=== PATIENT | male | born 1975 | race Caucasian/White ===

== ENCOUNTER → 2019-04-29 | Outpatient (CLI) | payer BC ==
[~2019-04-29] MED LIST: CETI10 PO; CITA20 PO; TRAZ50 PO
== END | disposition home or self-care (01) ==
LOC: PLD 07:46 → LAB SHORT 07:46
DX: B07.9 Viral wart, unspecified (principal)
CPT/HCPCS: 88305

== ENCOUNTER 2019-07-20 16:30 | Emergency (ER) | payer OTHER, BC ==
[~2019-07-20] VITALS: Ht 172.7 cm; Wt 81.7 kg
[2019-07-20] MEDS ORDERED: Norco 7.5-3251 EACH PO (17:55)
[2019-07-20] MEDS ORDERED: IBUP400 PO (17:55)
== END 2019-07-20 18:10 | disposition home or self-care (01) ==
LOC: ER 16:30
DX: S46.212A Strain of muscle, fascia and tendon of other parts of biceps, left arm, initial encounter (principal); Z79.899 Other long term (current) drug therapy; W01.0XXA Fall on same level from slipping, tripping and stumbling without subsequent striking against object, initial encounter
CPT/HCPCS: 73060; 76882; 99284-25; A9270-GY

== ENCOUNTER 2019-10-28 12:53 | Emergency (ER) | payer BC ==
[~2019-10-28 12:53] MED LIST changes: +IBUP400 PO; +Norco 7.5-3251 EACH PO
[2019-10-28] MEDS ORDERED: Lamictal150 MG PO (13:05)
[2019-10-28] MEDS ORDERED: CLON.2 PO (13:05)
[2019-10-28] MEDS ORDERED: DESVENLAFAXINE100 M3 PO (13:06)
[2019-10-28] MEDS ORDERED: SYNTHROID50 MC1 PO (13:06)
[2019-10-28] MEDS ORDERED: ALPRAZOLAM0.5 M1 PO (13:06)
[2019-10-28 13:21] LABS: BASOPHILS ABSOLUTE AUTO 0.03 K/mm3 (0.00-0.23); BASOPHILS PERCENT AUTO 0 % (0-2); EOSINOPHILS ABSOLUTE AUTO 0.15 K/mm3 (0.00-0.68); EOSINOPHILS PERCENT AUTO 2 % (0-6); Hemoglobin 16.4 g/dL (13.5-17.5); IMMATURE GRAN ABSOLUTE AUTO 0.02 K/mm3 (0.00-0.10); IMMATURE GRAN PERCENT AUTO 0 % (0-1); LYMPHOCYTES ABSOLUTE AUTO 2.14 K/mm3 (0.84-5.20); LYMPHOCYTES PERCENT AUTO 25 % (21-46); MONOCYTES PERCENT AUTO 12 % (4-13); Mean Corpuscular HGB 33.1 pg (26.0-34.0); Mean Corpuscular HGB Conc 36.4 g/dL (31.5-36.5); Mean Corpuscular Volume 91 fL (80-100); Mean Platelet Volume 9.7 fL (9.1-12.4); NEUTROPHILS ABSOLUTE AUTO 5.35 K/mm3 (1.96-9.15); NEUTROPHILS PERCENT AUTO 62 % (41-73); Platelet Count 264 K/mm3 (150-400); RDW Coefficient Variation 12.5 % (11.7-14.2); RDW Standard Deviation 40.7 fL (35.1-46.3); Red Blood Cell Count 4.95 M/mm3 (4.30-5.90); White Blood Cell Count 8.69 K/mm3 (4.00-11.30)
[2019-10-28 13:34] LABS: Alanine Aminotransfer (ALT/SGP 37 U/L (12-78); Albumin, Blood 4.6 g/dL (3.4-5.0); Albumin/Globulin Ratio 1.4 (0.8-1.8); Alk Phos 91 U/L (50-136); Anion Gap 9 mmol/L (6-16); Aspartate Aminotrans (AST/SGOT 33 U/L (12-37); Bilirubin, Total 0.9 mg/dL (0.1-1.0); Blood Urea Nitrogen 9 mg/dL (8-24); Bun/Creatinine Ratio 8.2 (12.0-20.0); CO2, Blood 24 mmol/L (21-32); Calcium, Blood 9.4 mg/dL (8.5-10.1); Chloride, Blood 104 mmol/L (98-108); Globulin, Blood 3.4 g/dL (2.2-4.0); Glomerular Filtration Rate >60 (60-); Glucose, Blood 132 mg/dL (70-99); Potassium, Blood 3.6 mmol/L (3.5-5.5); Sodium, Blood 137 mmol/L (136-145)
[2019-10-28 14:04] LABS: Source, Urine Clean Catch
[2019-10-28 14:15] LABS: Bilirubin, Urine Neg (Neg); Blood, Urine Neg (Neg); Glucose Qualitative, Urine Neg (Neg); Ketones, Urine Neg (Neg); Leukocyte Esterase, Urine Neg (Neg); Nitrite, Urine Neg (Neg); Protein, Urine Neg (Neg); Specific Gravity, Urine 1.005 (1.003-1.022); Urobilinogen, Urine NORM (Normal)
[2019-10-28 14:20] LABS: Appearance, Urine Clear (Clear); Color, Urine Yellow (P-Yellow); Urine Culture Indicated No (No)
[2019-10-28] MEDS ORDERED: HYDR1TAB94 PO (14:35)
[2019-10-28] MEDS ORDERED: Avidoxy100 MG PO (14:35)
[2019-10-29] MEDS ORDERED: ONDA4ODT SL (13:00)
[2019-10-29] MEDS ORDERED: BELPTAB PO (13:00)
== END 2019-10-28 15:20 | disposition home or self-care (01) ==
PROVIDERS: Physician Assistant
DX: R10.30 Lower abdominal pain, unspecified (principal); Z79.899 Other long term (current) drug therapy

== ENCOUNTER 2019-10-29 09:56 | Emergency (ER) | payer BC ==
[~2019-10-29] VITALS: Ht 172.7 cm; Wt 86.2 kg
[~2019-10-29 09:56] MED LIST changes: +ALPRAZOLAM0.5 M1 PO; +Avidoxy100 MG PO; +CLON.2 PO; +DESVENLAFAXINE100 M3 PO; +HYDR1TAB94 PO; +Lamictal150 MG PO; +SYNTHROID50 MC1 PO
[2019-10-29 12:19] LABS: BASOPHILS ABSOLUTE AUTO 0.02 K/mm3 (0.00-0.23); BASOPHILS PERCENT AUTO 0 % (0-2); EOSINOPHILS ABSOLUTE AUTO 0.14 K/mm3 (0.00-0.68); EOSINOPHILS PERCENT AUTO 2 % (0-6); Hematocrit 42.4 % (37.0-53.0); Hemoglobin 15.1 g/dL (13.5-17.5); IMMATURE GRAN ABSOLUTE AUTO 0.01 K/mm3 (0.00-0.10); IMMATURE GRAN PERCENT AUTO 0 % (0-1); LYMPHOCYTES ABSOLUTE AUTO 1.31 K/mm3 (0.84-5.20); LYMPHOCYTES PERCENT AUTO 22 % (21-46); MONOCYTES ABSOLUTE AUTO 0.65 K/mm3 (0.16-1.47); MONOCYTES PERCENT AUTO 11 % (4-13); Mean Corpuscular HGB Conc 35.6 g/dL (31.5-36.5); Mean Corpuscular Volume 93 fL (80-100); Mean Platelet Volume 9.6 fL (9.1-12.4); NEUTROPHILS ABSOLUTE AUTO 3.89 K/mm3 (1.96-9.15); NEUTROPHILS PERCENT AUTO 65 % (41-73); Platelet Count 197 K/mm3 (150-400); RDW Coefficient Variation 12.2 % (11.7-14.2); RDW Standard Deviation 41.3 fL (35.1-46.3); Red Blood Cell Count 4.58 M/mm3 (4.30-5.90); White Blood Cell Count 6.02 K/mm3 (4.00-11.30)
[2019-10-29 12:27] LABS: Source, Urine Voided
[2019-10-29 12:35] LABS: PSA, Free 0.217 ng/mL
[2019-10-29 12:41] LABS: Bilirubin, Urine Neg (Neg); Blood, Urine Neg (Neg); Glucose Qualitative, Urine Neg (Neg); Ketones, Urine Neg (Neg); Leukocyte Esterase, Urine 1+ (Neg); Nitrite, Urine Neg (Neg); Protein, Urine Neg (Neg); Specific Gravity, Urine 1.005 (1.003-1.022); Urobilinogen, Urine NORM (Normal); pH, Urine 6.5 (5.0-8.0)
[2019-10-29] MEDS ORDERED: BELPTAB PO (13:00)
[2019-10-29] MEDS ORDERED: ONDA4ODT SL (13:00)
[2019-10-29 13:04] LABS: Appearance, Urine Clear (Clear); Color, Urine Yellow (P-Yellow)
[2019-10-29 13:05] LABS: Bacteria Few /hpf; Red Blood Cells, Urine 0-2 /hpf (0-2); Squamous Epithelial Cells Rare /hpf (Few)
== END 2019-10-29 13:20 | disposition home or self-care (01) ==
LOC: ER 09:56
PROVIDERS: Emergency Medicine
DX: R10.30 Lower abdominal pain, unspecified (principal); R10.815 Periumbilic abdominal tenderness
CPT/HCPCS: 36415; 81001; 84153; 84154; 85025; 87086; 99283

== ENCOUNTER 2022-03-16 14:41 | Emergency (ER) | payer BC ==
[~2022-03-16] VITALS: Ht 172.7 cm; Wt 86.2 kg
[~2022-03-16 14:41] MED LIST changes: +BELPTAB PO; +ONDA4ODT SL
[2022-03-16] MEDS ORDERED: CEPH500 PO (15:38)
[2022-03-16] MEDS ORDERED: SULTRIDS PO (15:38)
[2022-03-16] MEDS ORDERED: AMOCLA875 PO (17:53)
== END 2022-03-16 18:34 | disposition home or self-care (01) ==
LOC: ER 14:41
DX: S51.822A Laceration with foreign body of left forearm, initial encounter (principal); W29.8XXA Contact with other powered hand tools and household machinery, initial encounter; Z23 Encounter for immunization
CPT/HCPCS: 12044; 73090; 90471; 90714; 96372-59; 96374-59; 96375-59; 99283-25; A9270; J0690; J1170; J1885; J2405

== ENCOUNTER → 2023-01-18 | Outpatient (CLI) | payer BC | LOC: PLD 15:48 | DX: B07.8 Other viral warts (principal) ==